=== PATIENT | male | born 1950 | race Caucasian/White ===

== ENCOUNTER 2020-11-07 19:53 | Emergency (ER) | payer MEDICARE, BC ==
[2020-11-07 20:59] VITALS: BP 167/91; PULSE 96; RESP 15; TEMP 98.7
--- NOTE | 2020-11-07 21:56 | ED ---
General Adult HPI - General Chief complaint: Recheck/Abnormal Lab/Rx Stated complaint: Covid test Source: patient Mode of arrival: ambulatory - History of Present Illness Initial comments: Patient is a 70-year-old male who presents to the emergency department requesting a Covid swab. Patient is attempting to get into [facility] and needs a negative Covid swab. He denies any chest pain, shortness of breath, fevers or chills. No nausea, vomiting or diarrhea. No contact with anyone positive for Covid. No other alleviating, precipitating or modifying factors - Related Data Allergies Allergy/AdvReac Type Severity Reaction Status Date / Time No Known Allergies Allergy Verified 11/07/20 20:56 Review of Systems ROS Statement: Those systems with pertinent positive or pertinent negative responses have been documented in the HPI. ROS Other: All systems not noted in ROS Statement are negative. Past Medical History Past Medical History: No Reported History History of Any Multi-Drug Resistant Organisms: None Reported Past Surgical History: No Surgical Hx Reported Past Psychological History: No Psychological Hx Reported Smoking Status: Never smoker Past Alcohol Use History: Occasional Past Drug Use History: None Reported Course Vital Signs 11/07/20 20:56 Temperature 98.7 F Pulse Rate 96 Respiratory 15 Rate Blood Pressure 167/91 O2 Sat by Pulse 97 Oximetry Medical Decision Making - Medical Decision Making Upon arrival the patient is swabbed for covid and it comes back negative. Patient will be discharged at this time with copies of his test result. Asked return to the emergency department for any new symptoms - Lab Data Lab Results 11/07/20 Range/Units 21:10 Coronavirus (PCR) Not Detected (Not Detectd) Disposition Clinical Impression: Normal exam Disposition: HOME SELF-CARE Condition: Stable Additional Instructions: Your Covid test was negative Is patient prescribed a controlled substance at d/c from ED?: No Referrals: Nonstaff,Physician [Primary Care Provider] - 1-2 days Time of Disposition: 21:56
== END 2020-11-07 22:26 | disposition home or self-care (01) ==
LOC: EC 19:53
DX: Z11.52 Encounter for screening for COVID-19 (principal); Z20.822 Contact with and (suspected) exposure to COVID-19
CPT/HCPCS: 87635; 99282